=== PATIENT | male | born 1945 | race Caucasian/White ===

== ENCOUNTER 2024-11-08 07:29 | Outpatient (CLI) | payer MEDICARE ==
[2024-11-08 10:29] LABS: Estimated GFR - POC 77.0
== END 2024-11-08 07:30 | disposition home or self-care (01) ==
LOC: CSHMRI 07:29
PROVIDERS: ATTEND Neurological Surgery
DX: Z01.818 Encounter for other preprocedural examination (principal); Z95.0 Presence of cardiac pacemaker; D32.9 Benign neoplasm of meninges, unspecified; G93.6 Cerebral edema; R90.82 White matter disease, unspecified
CPT/HCPCS: 36415; 70553; 71045; 76014; 76018; 76376; 82565